=== PATIENT | male | born 1960 | race Two or more races ===

== ENCOUNTER 2024-02-29 17:40 | Inpatient (IN) | payer MEDICAID, OTHER ==
[~2024-02-29] VITALS: Ht 172.7 cm; Wt 88.5 kg
--- NOTE | 2024-02-29 18:15 | DVH ---
EXAM: XY CHEST PORTABLE TECHNIQUE: Single frontal chest radiograph CLINICAL HISTORY: CP COMPARISON: None Findings/Impression: Frontal chest radiograph demonstrates no acute osseous or superficial soft tissue abnormalities. The trachea is midline. The cardiac silhouette and mediastinum are within normal limits. No pneumothorax, pleural effusions, or consolidations.
[2024-02-29 19:16] LABS: Basophils # (auto) 0.1 10 ^3/uL (0-0.2); Basophils % (auto) 0.8 % (0.0-2.0); Eosinophils # (auto) 0.1 10 ^3/uL (0-0.8); Eosinophils % (auto) 0.7 % (0.0-7.0); Hematocrit 46.1 % (41.0-53.0); Hemoglobin 15.5 g/dL (13.5-17.5); Lymphocytes # (auto) 1.7 10 ^3/uL (0.4-5.4); Lymphocytes % (auto) 21.7 % (10.0-50.0); Mean Corpuscular Hemoglobin 29.6 pg (28.0-32.0); Mean Corpuscular Hgb Conc. 33.7 g/dL (32.0-36.0); Mean Corpuscular Volume 87.8 fL (80.0-100.0); Monocytes # (auto) 0.8 10 ^3/uL (0-1.3); Monocytes % (auto) 9.4 % (0.0-12.0); Neutrophils # (auto) 5.4 10 ^3/uL (1.6-8.6); Neutrophils % (auto) 67.4 % (37.0-80.0); Nucleated Red Blood Cells % 0.1 %; Platelet Count (auto) 310 10^3/uL (140-450); Red Blood Cells 5.25 10^6/uL (4.5-5.90); Red Cell Distribution Width 13.7 % (11.8-14.3)
--- NOTE | 2024-02-29 19:23 | ED.PDOC ---
HPI Comments 63y M who presents to the ED for chief complaint of chest pain. Pt states he has been having chest pain for the past 1 1/2 weeks. Pt states the pain is substernal, radiating to the arms, aching in nature, constant, with no associated exacerbating or relieving factors. Pt has associated shortness of breath with associated tingling to his bilateral arms but otherwise denies any other symptoms at this time. Pt [facility] to ED arrival and work up at clinic did not provide relief so he came to the ED for further evaluation. Pt otherwise denies any other symptoms at this time. Chief Complaint: Chest Pain Time Seen by MD: 19:15 Primary Care Provider: GOLD Sanon Notes: Medications Allergies: Coded Allergies: NO KNOWN ALLERGIES (Unverified , 02/29/24) Information Source: Patient, Relative Mode of Arrival: Ambulatory Brought in by: son Severity: Moderate Timing: Hours Duration: Since onset Prehospital treatment: None Location: Chest (R) Radiation: No Radiation Quality: Sharp, Pressure Onset: At Rest Cardiac Risk Factors: None PE Risk Factors: None History of: None Modifying Factors: Nothing Associated Signs and Symptoms: None Past Medical History PAST MEDICAL HISTORY: DM, High Lipids, HTN Surgical History: Appendectomy Family History Family History: Unknown Social History Smoker: Non-Smoker Alcohol: Denies ETOH Use Drugs: Denies Drug Use Lives In: Home Constitutional: denies: chills, diaphoresis, fatigue, fever, malaise, sweats, weakness, others EENTM: denies: blurred vision, double vision, ear bleeding, ear discharge, ear drainage, ear pain, ear ringing, eye pain, eye redness, hearing loss, mouth pain, mouth swelling, nasal discharge, nose bleeding, nose congestion, nose pain, photophobia, tearing, throat pain, throat swelling, voice changes, others Respiratory: denies: cough, hemoptysis, orthopnea, SOB at rest, shortness of breath, SOB with excertion, stridor, wheezing, others Cardiovascular: reports: chest pain; denies: dizzy spells, diaphoresis, Dyspnea on exertion, edema, irregular heart beat, left arm pain, lightheadedness, palpitations, PND, syncope, others Gastrointestinal: denies: abdomen distended, abdominal pain, blood streaked bowels, constipated, diarrhea, dysphagia, difficulty swallowing, hematemesis, melena, nausea, poor appetite, poor fluid intake, rectal bleeding, rectal pain, vomiting, others Genitourinary: denies: burning, dysuria, flank pain, frequency, hematuria, incontinence, penile discharge, penile sore, pain, testicle pain, testicle swelling, urgency, others Neurological: denies: dizziness, fainting, headache, left sided numbness, left sided weakness, numbness, paresthesia, pre-existing deficit, right sided numbness, right sided weakness, seizure, speech problems, tingling, tremors, weakness, others Musculoskeletal: denies: back pain, gout, joint pain, joint swelling, muscle pain, muscle stiffness, neck pain, others Integumetry: denies: bruises, change in color, change in hair/nails, dryness, laceration, lesions, lumps, rash, wounds, others Allergic/Immunocompromised: denies: Difficulty Healing, Frequent Infections, Hives, Itching, others Hematologic/Lymphatic: denies: anemia, blood clots, easy bleeding, easy bruising, swollen glands, others Endocrine: denies: excessive hunger, excessive sweating, excessive thirst, excessive urination, flushing, intolerance to cold, intolerance to heat, unexplained weight gain, unexplained weight loss, others Psychiatric: denies: anxiety, bipolar disorder, depression, hopeless, panic disorder, schizophrenia, sleepless, suicidal, others All Other Systems: Reviewed and Negative Physical Exam General Appearance: Moderate Distress HEENT: Normal ENT Inspection, Pharynx Normal, TMs Normal Neck: Full Range of Motion, Non-Tender, Normal, Normal Inspection Respiratory: Chest Non-Tender, Lungs Clear, No Accessory Muscle Use, No Respiratory Distress, Normal Breath Sounds Cardiovascular: No Edema, No JVD, No Murmur, No Gallop, Normal Peripheral Pulses, Regular Rate/Rhythm Breast Exam: Deferred Gastrointestinal: No Organomegaly, Non Tender, No Pulsatile Mass, Normal Bowel Sounds, Soft Genitalia: Deferred Pelvic: Deferred Rectal: Deferred Extremities: No calf tenderness, Normal capillary refill, Normal inspection, Normal range of motion, Non-tender, No pedal edema Musculoskeletal : Apperance: Normal Neurologic: Alert, respiratory therapy technician II-XII nml as Tested, No Motor Deficits, Normal Affect, Normal Mood, No Sensory Deficits Cerebellar Function: Normal Reflexes: Normal Skin: Dry, Normal Color, Warm Lymphatic: No Adenopathy EKG EKG : Pulse Rate (adult): 68 [place]: Normal Cardiac Rhythm: NSR Hypertrophy: None ST: Ischemia, Nonsp, Normal Was a procedure done? Was a procedure done?: No CP Differential Dx Differential Diagnosis: A-fib, A-Flutter, Angina, Anxiety / Panic Attack, Atrial Dysrhythmia, Electrolyte Disorder, PVC's, Sinus Tachycardia Differential Diagnosis: Chest Wall Pain X-Ray, Labs, Meds, VS Vital Signs Date Time Temp Pulse Resp B/P (MAP) Pulse Ox O2 Delivery O2 Flow Rate FiO2 02/29/24 19:23 68 02/29/24 18:51 68 02/29/24 17:49 64 02/29/24 17:45 97.8 72 18 143/80 (101) 96 Lab Test 02/29/24 18:44 Range/Units White Blood Count 8.0 4.4-10.8 10^3/uL Red Blood Count 5.25 4.5-5.90 10^6/uL Hemoglobin 15.5 13.5-17.5 g/dL Hematocrit 46.1 41.0-53.0 % Mean Corpuscular Volume 87.8 80.0-100.0 fL Mean Corpuscular Hemoglobin 29.6 28.0-32.0 pg Mean Corpuscular Hemoglobin Concent 33.7 32.0-36.0 g/dL Red Cell Distribution Width 13.7 11.8-14.3 % Platelet Count 310 140-450 10^3/uL Mean Platelet Volume 9.0 6.9-10.8 fL Neutrophils (%) (Auto) 67.4 37.0-80.0 % Lymphocytes (%) (Auto) 21.7 10.0-50.0 % Monocytes (%) (Auto) 9.4 0.0-12.0 % Eosinophils (%) (Auto) 0.7 0.0-7.0 % Basophils (%) (Auto) 0.8 0.0-2.0 % Neutrophils # (Auto) 5.4 1.6-8.6 10 ^3/uL Lymphocytes # (Auto) 1.7 0.4-5.4 10 ^3/uL Monocytes # (Auto) 0.8 0-1.3 10 ^3/uL Eosinophils # (Auto) 0.1 0-0.8 10 ^3/uL Basophils # (Auto) 0.1 0-0.2 10 ^3/uL Nucleated Red Blood Cells 0.1 % Sodium Level 143 136-145 mmol/L Potassium Level 4.4 3.5-5.1 mmol/L Chloride Level 106 98-107 mmol/L Carbon Dioxide Level 29 20-31 mmol/L Anion Gap 8 5-15 Blood Urea Nitrogen 12 9-23 mg/dL Creatinine 1.22 0.700-1.30 mg/dL Glomerular Filtration Rate Calc 67 >90 mL/min BUN/Creatinine Ratio 9.8 L 10.0-20.0 Serum Glucose 197 H 74-106 mg/dL Calcium Level 10.2 8.7-10.4 mg/dL Total Bilirubin 0.4 0.2-1.0 mg/dL Aspartate Amino Transferase (AST) 89 H 13-40 U/L Alanine Aminotransferase (ALT) 43 H 7-40 U/L Alkaline Phosphatase 137 H 46-116 U/L Troponin I High Sensitivity 81168 *H </=54 ng/L Total Protein 6.9 5.7-8.2 g/dL Albumin 4.4 3.2-4.8 g/dL EXAM: XY CHEST PORTABLE Findings/Impression: Frontal chest radiograph demonstrates no acute osseous or superficial soft tissue abnormalities. The trachea is midline. The cardiac silhouette and mediastinum are within normal limits. No pneumothorax, pleural effusions, or consolidations. IV Hep-Lock has been established The patient was given aspirin here in the emergency department[place] [address] The CBC and chemistry panel came back within normal range We are starting STEMI protocol The patient had a nitroglycerin placed as 1/2 inch on the chest The patient was also given heparin 4000 units IV push The patient was also being started on an insulin drip A cardiology consult is being obtained. The patient was being admitted We have discussed the findings with the patient and his son who is his fiber designer. Critical Care involved bedside evaluation as well as interpretation of labs and speaking with the technical marketing consultant. The patient was being admitted Images Reviewed?: Images reviewed and evaluated by me Time of 1ST Reevaluation: 19:45 Reevaluation 1ST: Unchanged Patient Education/Counseling: Diagnosis, Treatment, Prognosis Family Education/Counseling: Diagnosis, Treatment, Prognosis Additional Information I reviewed the following notes from patient's past medical encounters: The following tests were ordered, and results were reviewed by me: ASA, COVID test, EKG x 3, troponin x3, UA, CBC, CMP, chest x-ray Additional Information was gathered from interviewing the following independent historians: pt family I reviewed and agreed with the following test results read by other providers: radiologist I discussed treatment and results with medical personnel and: patient and family Departure 1 Departure Time of Disposition: 19:49 Impression: Primary Impression: Non-STEMI (non-ST elevated myocardial infarction) Disposition: ADMITTED INPATIENT Admit to: [facility] Condition: Guarded Critical Care Note Critical Care Time?: Yes (55 min-critical care time only) Stability Stability form required: Yes Unstable for transfer: ICU, CCU, PCU, [facility] (Intensive VS monitoring), ED Physician Assesment (Clinical assesment) Heart Score Heart Score: Heart Score Response (Comments) Value History Highly Suspicious 2 EKG Repolarization Disturb 1 Age 45-64 1 Risk Factors >3 or Hx ASHD 2 Troponin >3 x's Normal limit 2 Total 8 I personally scribed for INA DIXON ([email or web address]) on 02/29/24 at 19:23. Electronically submitted by Ca Hicks ([email or web address]). INA DIXON Feb 29, 2024 19:23 ALEJANDRA MERCHANT MD Feb 29, 2024 19:51
[2024-02-29 19:39] LABS: Albumin 4.4 g/dL (3.2-4.8); Anion Gap 8 (5-15); BUN/Creatinine Ratio 9.8 (10.0-20.0); Blood Urea Nitrogen 12 mg/dL (9-23); Calcium 10.2 mg/dL (8.7-10.4); Carbon Dioxide 29 mmol/L (20-31); Chloride 106 mmol/L (98-107); Potassium 4.4 mmol/L (3.5-5.1); Sodium 143 mmol/L (136-145)
[2024-02-29 19:40] LABS: Bilirubin, Total 0.4 mg/dL (0.2-1.0); Total Protein 6.9 g/dL (5.7-8.2)
[2024-02-29 19:42] LABS: Alanine Aminotransferase 43 U/L (7-40); Alkaline Phosphatase 137 U/L (46-116); Aspartate Aminotransferase 89 U/L (13-40); Glucose 197 mg/dL (74-106)
[2024-02-29 20:00] VITALS: PULSE 64; RESP 17; O2SAT 94
[2024-02-29] MEDS ORDERED: hydrALAZINE HCL 20 MG/ML VL IV PRN (20:15)
[2024-02-29] MEDS ORDERED: DEXTROSE (50%) 50ML SYRG IV PRN (20:30)
[2024-02-29] MEDS ORDERED: MORPHINE SULFATE INJ 2 MG/ml SYRG IV PRN (20:30)
[2024-02-29] MEDS ORDERED: ONDANSETRON HCL 4 MG/2 ML VIAL IV PRN (20:30)
[2024-02-29] MEDS ORDERED: NITROGLYCERIN 0.4 MG SL TAB SL PRN (20:30)
[2024-02-29 20:35] LABS: Urine Bacteria None Seen /hpf (None Seen); Urine WBC None Seen /hpf (0 - 3)
[2024-02-29] MEDS: NITROGLYCERIN 2% OINT 1GM PKG TD ONE (20:38)
[2024-02-29] MEDS: ASPirin 81 mg TAB PO ONE (20:39)
[2024-02-29] MEDS: HEPARIN SODIUM (PORCINE) 5000 UNITS/ML 1ML VIAL IV ONE (20:41)
[2024-02-29 21:04] LABS: Urine Blood Negative /uL (Negative); Urine Clarity Clear (Clear); Urine Color Light-Yellow (Yellow); Urine Protein, UAD Negative (Negative); Urine Specific Gravity 1.014 (1.001-1.035); Urine Squamous Epithelial Cell None Seen /hpf (<5); Urine Urobilinogen Normal (Negative); Urine pH 5.5 (5.0-9.0)
[2024-02-29] MEDS: ATORVASTATIN 20 MG TAB PO ONE (21:44)
[2024-02-29] MEDS: HEPARIN DRIP/D5W 100UNITS/ML 250 ML IV SCH (21:52)
--- NOTE | 2024-02-29 21:56 | DVHHP2 ---
History of Present Illness Reason for Visit: Chest pain History of Present Illness 63-year-old male presents for evaluation of chest pain. Patient with a medical history of hypertension, dyslipidemia and diabetes mellitus presents with a to history of substernal burning like sensation that radiates to his neck bilateral arms causing numbness. Also reports mild shortness for breath. He states his symptoms became more constant today so he presented for further evaluation. Denies cough or fever. Denies any other acute complaints at the moment. Past Medical History Hypertension, dyslipidemia and diabetes mellitus Past Surgical History Appendectomy Family History Denies Smoke: No ALCOHOL: none Drugs: None Lives: with Family Review of Systems Review of Systems Review of systems are currently negative otherwise addressed in HPI. Allergies: Coded Allergies: NO KNOWN ALLERGIES (Unverified , 02/29/24) Medications Current Medications Medications Dose Ordered Sig/Devan Route Start Time Stop Time Status Last Admin Dose Admin Heparin Sodium/ Dextrose 250 ml @ 10 mls/hr Q24H IV 02/29/24 20:00 Hydralazine HCl 10 mg Q6HP PRN IV 02/29/24 20:15 Aspirin 162 mg DAILY PO 03/01/24 10:00 Atorvastatin Calcium 20 mg HS PO 03/01/24 22:00 Diagnostic Test (Pha) 1 strip Q6HR 03/01/24 00:00 Insulin Human Regular Q6HR SC 03/01/24 00:00 Dextrose 50 ml UD PRN IV 02/29/24 20:30 Ondansetron HCl 4 mg Q4HP PRN IV 02/29/24 20:30 Nitroglycerin 0.4 mg Q5MINP PRN SL 02/29/24 20:30 Morphine Sulfate 2 mg Q30M PRN IV 02/29/24 20:30 Exam Vital Signs Vital Signs Date Time Temp Pulse Resp B/P (MAP) Pulse Ox O2 Delivery O2 Flow Rate FiO2 02/29/24 20:38 132/71 02/29/24 20:06 64 17 94 02/29/24 17:45 97.8 Exam Gen: 63-year-old male in mild distress Skin: Warm, dry, normal color and texture, no rash. HEENT: Normocephalic atraumatic, mucous membranes moist and pink. Neck: Cervical and supraclavicular nodes normal without enlargement, trachea is midline, thyroid gland is normal without masses. Pulmonary: Clear to auscultation and percussion bilaterally. Cardiac: Regular rate and rhythm. No murmur Abdomen: Soft, nontender, nondistended, bowel sounds present all 4 quadrants, no guarding, no rigidity, no organomegaly. Extremities: No cyanosis, clubbing, no edema Neuro: Cranial nerves II through XII grossly intact, normal affect and speech, no focal motor deficits. Labs/Xrays ORDERING PHYSICIAN: ALEJANDRA MERCHANT MD PROCEDURE(s): CXRP - CHEST PORTABLE REASON: CP ORDER NUMBER(s): [id number], ACCESSION NUMBER(s): [id number] EXAM: XY CHEST PORTABLE TECHNIQUE: Single frontal chest radiograph CLINICAL HISTORY: CP COMPARISON: None Findings/Impression: Frontal chest radiograph demonstrates no acute osseous or superficial soft tissue abnormalities. The trachea is midline. The cardiac silhouette and mediastinum are within normal limits. No pneumothorax, pleural effusions, or consolidations. Labs Test 02/29/24 21:38 02/29/24 19:56 02/29/24 18:44 02/29/24 17:49 Range/Units Troponin I High Sensitivity 14415 *H </=54 ng/L White Blood Count 8.0 4.4-10.8 10^3/uL Red Blood Count 5.25 4.5-5.90 10^6/uL Hemoglobin 15.5 13.5-17.5 g/dL Hematocrit 46.1 41.0-53.0 % Mean Corpuscular Volume 87.8 80.0-100.0 fL Mean Corpuscular Hemoglobin 29.6 28.0-32.0 pg Mean Corpuscular Hemoglobin Concent 33.7 32.0-36.0 g/dL Red Cell Distribution Width 13.7 11.8-14.3 % Platelet Count 310 140-450 10^3/uL Mean Platelet Volume 9.0 6.9-10.8 fL Neutrophils (%) (Auto) 67.4 37.0-80.0 % Lymphocytes (%) (Auto) 21.7 10.0-50.0 % Monocytes (%) (Auto) 9.4 0.0-12.0 % Eosinophils (%) (Auto) 0.7 0.0-7.0 % Basophils (%) (Auto) 0.8 0.0-2.0 % Neutrophils # (Auto) 5.4 1.6-8.6 10 ^3/uL Lymphocytes # (Auto) 1.7 0.4-5.4 10 ^3/uL Monocytes # (Auto) 0.8 0-1.3 10 ^3/uL Eosinophils # (Auto) 0.1 0-0.8 10 ^3/uL Basophils # (Auto) 0.1 0-0.2 10 ^3/uL Nucleated Red Blood Cells 0.1 % Sodium Level 143 136-145 mmol/L Potassium Level 4.4 3.5-5.1 mmol/L Chloride Level 106 98-107 mmol/L Carbon Dioxide Level 29 20-31 mmol/L Anion Gap 8 5-15 Blood Urea Nitrogen 12 9-23 mg/dL Creatinine 1.22 0.700-1.30 mg/dL Glomerular Filtration Rate Calc 67 >90 mL/min BUN/Creatinine Ratio 9.8 L 10.0-20.0 Serum Glucose 197 H 74-106 mg/dL Calcium Level 10.2 8.7-10.4 mg/dL Total Bilirubin 0.4 0.2-1.0 mg/dL Aspartate Amino Transferase (AST) 89 H 13-40 U/L Alanine Aminotransferase (ALT) 43 H 7-40 U/L Alkaline Phosphatase 137 H 46-116 U/L Total Protein 6.9 5.7-8.2 g/dL Albumin 4.4 3.2-4.8 g/dL Urine Color Light-yellow Yellow Urine Clarity Clear Clear Urine pH 5.5 5.0-9.0 Urine Specific [place] 1.014 1.001-1.035 Urine Protein Negative Negative Urine Ketones Negative Negative Urine Blood Negative Negative /uL Urine Nitrite Negative Negative Urine Bilirubin Negative Negative Urine Urobilinogen Normal Negative mg/dL Urine Leukocyte Esterase Negative Negative /uL Urine RBC <1 0 - 3 /hpf Urine WBC None seen 0 - 3 /hpf Urine Squamous Epithelial Cells None seen <5 /hpf Urine Bacteria None seen None Seen /hpf Urine Glucose 2+ H Normal mg/dL Assessment/Plan Assessment/Plan Assessment NSTEMI Diabetes mellitus Hypertension Plan Admit the patient to [facility] to the hospitalist Cardiology consultation, Dr. Pérez who generally the morning of the case will consult on the patient tomorrow. NPO Continue heparin drip ACS protocol Continue treatment per orders Total critical care time excluding procedures performed is 50 minutes. Plan discussed with: Patient My Orders Orders - ZE STARR Procedure Category Date Status Time Hydralazine Injection PHA 02/29/24 In Process (Apresoline Inject 20:15 * Cardiology Consult CONS 02/29/24 Transmitted 20:11 PTPTT LAB 02/29/24 In Process 20:11 Aspirin Tablet PHA 03/01/24 In Process 10:00 Glucose Blood PHA 03/01/24 In Process (Accu-Chek Comfort 00:00 Insulin R (Human) PHA 03/01/24 In Process (Insulin R) 00:00 Dextrose 50% Syringe PHA 02/29/24 In Process 20:30 Admit ADMIT 02/29/24 Transmitted 20:20 Ondansetron Hcl PHA 02/29/24 In Process (Zofran) 20:30 Complete Blood Count LAB 03/01/24 Verified 04:00 Comprehensive LAB 03/01/24 Verified Metabolic Panel 04:00 Npo (Nothing By DIET 03/01/24 Transmitted Mouth) Diet Breakfast Echo 2d Mode Cardiac US 02/29/24 Logged DOP 20:20 Condition: Critical JOHANA 02/29/24 In Process 20:20 Bedrest With Bathroom JOHANA 02/29/24 In Process Privileg 20:20 Nitroglycerin PHA 02/29/24 In Process Sublingual (Ntrostat 20:30 Morphine Sulfate PHA 02/29/24 In Process Injection 20:30 Notify Of Changes JOHANA 02/29/24 In Process From Base 20:20 Business System Manager For [facility] 02/29/24 In Process 24 Hours 20:20 Emergency Dysrhythmia [facility] 02/29/24 In Process Protocol 20:20 Rhythm Strips Once [facility] 02/29/24 In Process Every Shift 20:20 Oxygen By Nasal RT 02/29/24 Transmitted Cannula 20:20 Atorvastatin (Lipitor) PHA 03/01/24 In Process 22:00 Date of Service: Feb 29, 2024 Billing Provider: ZE STARR Common Visit Codes: [id number] CARE 30-74 MIN ZE STARR Feb 29, 2024 21:56
[2024-02-29 22:10] LABS: INR 1.03 (0.9-1.15); Prothrombin Time 10.9 sec (9.3-11.8)
[2024-02-29 22:11] LABS: Partial Thromboplastin Time 89.2 SEC (24.5-34.5)
[2024-02-29 23:18] LABS: INR 1.01 (0.9-1.15); Partial Thromboplastin Time 51.7 SEC (24.5-34.5); Prothrombin Time 10.7 sec (9.3-11.8)
[2024-03-01] VITALS (12 sets, daily range): BP systolic 96–124; BP diastolic 55–78; PULSE 65–87; RESP 12–19; TEMP 97.4–98.6; O2SAT 93–97
[2024-03-01] MEDS: ACCU-CHEK COMFORT CURVE STRIP VI SCH (00:44)
[2024-03-01] MEDS: InsuLIN REG 1unit/0.01ml Soln (100units/ml) SC SCH (01:22)
[2024-03-01 04:32] LABS: Basophils # (auto) 0.1 10 ^3/uL (0-0.2); Basophils % (auto) 0.6 % (0.0-2.0); Eosinophils # (auto) 0 10 ^3/uL (0-0.8); Eosinophils % (auto) 0.1 % (0.0-7.0); Hemoglobin 14.5 g/dL (13.5-17.5); Lymphocytes # (auto) 1.4 10 ^3/uL (0.4-5.4); Lymphocytes % (auto) 13.8 % (10.0-50.0); Mean Corpuscular Hemoglobin 29.5 pg (28.0-32.0); Mean Corpuscular Hgb Conc. 33.7 g/dL (32.0-36.0); Mean Corpuscular Volume 87.7 fL (80.0-100.0); Monocytes # (auto) 0.9 10 ^3/uL (0-1.3); Monocytes % (auto) 8.3 % (0.0-12.0); Neutrophils % (auto) 77.2 % (37.0-80.0); Platelet Count (auto) 273 10^3/uL (140-450); Red Cell Distribution Width 13.8 % (11.8-14.3); White Blood Cell 10.4 10^3/uL (4.4-10.8)
[2024-03-01 04:44] LABS: INR 1.01 (0.9-1.15); Prothrombin Time 10.7 sec (9.3-11.8)
[2024-03-01 04:50] LABS: Alanine Aminotransferase 39 U/L (7-40); Anion Gap 7 (5-15); BUN/Creatinine Ratio 8.3 (10.0-20.0); Bilirubin, Total 0.6 mg/dL (0.2-1.0); Calcium 9.4 mg/dL (8.7-10.4); Carbon Dioxide 26 mmol/L (20-31); Chloride 107 mmol/L (98-107); Potassium 3.9 mmol/L (3.5-5.1); Sodium 140 mmol/L (136-145); Total Protein 6.5 g/dL (5.7-8.2)
[2024-03-01 04:52] LABS: Alkaline Phosphatase 123 U/L (46-116); Aspartate Aminotransferase 116 U/L (13-40); Blood Urea Nitrogen 9 mg/dL (9-23); Glucose 192 mg/dL (74-106)
[2024-03-01] MEDS: HEPARIN DRIP/D5W 100UNITS/ML 250 ML IV SCH ×2 (04:57→19:00)
--- NOTE | 2024-03-01 07:51 | ECG ---
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
[2024-03-01 08:13] LABS: COVID19 ANTIGEN SOFIA FIA NEGATIVE (NEGATIVE)
--- NOTE | 2024-03-01 08:17 | ECG ---
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
[2024-03-01 08:22] LABS: Triglycerides 91 mg/dL (< 150)
[2024-03-01 08:23] LABS: LDL Cholesterol 96 mg/dL (< 100)
[2024-03-01 08:24] LABS: Cholesterol 149 mg/dL (< 200); HDL Cholesterol 43 mg/dL (40-59)
[2024-03-01] MEDS: ASPirin 81 mg TAB PO SCH ×2 (10:22→18:03)
[2024-03-01] MEDS: ATORVASTATIN 20 MG TAB PO ONE (10:23)
[2024-03-01 11:44] LABS: INR 1.04 (0.9-1.15); Partial Thromboplastin Time 50.7 SEC (24.5-34.5)
--- NOTE | 2024-03-01 12:46 | DVHPNRES ---
Progress Note Date Seen: Mar 01, 2024 Resident Creating Document: JOYCELYN OCASIO RESIDENT Medical Necessity Reason Pt with a Central, PICC or Fol: No Subjective Review of Systems Patient is a 63-year-old male with past medical history of hypertension, dyslipidemia, type 2 diabetes of, who came in due to chest pain. Patient notes for the last 1.5 weeks he has been having chest pain along with bilateral arm pain which is more pronounced in the left upper extremity than the right. Patient notes that previously he has experienced chest pain more so on exertion, however, that was intermittent in nature where as this current episode of chest pain is more persistent and had been ongoing for 4-5 hours on 02/29/24 which prompted this visit to the hospital. Patient describes the pain as heaviness in his chest along with difficulty breathing. Patient notes that he is able to engage in physical activity for 20 minutes before he starts experiencing chest pain/tightness. Patient notes he also attended another clinic before coming to the [facility] where he was told he needs to visit the hospital. [place] [address], [address] [place] [address]. Patient completed left heart catheterization which showed diffuse three-vessel disease including subtotal right and subtotal left circumflex artery with a moderately severe disease involving the proximal mid left anterior descending artery in the distal left main, given the diffuse nature of the disease patient is recommended to get a coronary artery bypass graft surgery as the best option for revascularization. Request to transfer to higher level of care initiated Past surgical history: Appendectomy Home medications: Atorvastatin, lisinopril, amlodipine, aspirin, oral antidiabetic medication patient unsure of name. Social & Personal history: Patient lives with family in [place]. Quit smoking cigarettes 30 years ago. Sometimes uses alcohol. Denies using drugs. Allergies: Denies Patient seen and examined at bedside. Patient is alert and oriented to time, place person and responding to all questions. General: Reports fatigue Eyes: No Pain, No Vision change, No Conjunctivae inflammation, No Eyelid inflammation, No Other, No Redness ENT: No Ear pain, No Ear discharge, No Nose pain, No Nose discharge, No Nose congestion, No Mouth pain, No Mouth swelling, No Throat pain, No Throat swelling, No Other Cardiovascular: No Chest Pain, No Palpitations, No Orthopnea, Dyspnea, No Edema, No Lt Headedness, No Other Respiratory: No Cough, No Dry, Shortness of breath, SOB with exertion, No Wheezing, No Hemoptysis, No Pleuritic Pain, No Sputum, No Other Gastrointestinal: No Nausea, No Vomiting, No Abdominal Pain, No Diarrhea, No Constipation, No Melena, No Hematochezia, No Other Genitourinary: No Dysuria, No Frequency, No Incontinence, No Hematuria, No Retention, No Other Musculoskeletal: No other, No neck pain, No shoulder pain, No arm pain, No back pain, No hand pain, No leg pain, No foot pain Skin: No Rash, No Lesions, No Jaundice, No Bruising, No Other Objective vital signs Vital Sign Date Time Temp Pulse Resp B/P (MAP) Pulse Ox O2 Delivery O2 Flow Rate FiO2 03/01/24 11:00 67 18 106/65 (79) 95 03/01/24 07:30 Room Air* 0 21 03/01/24 07:30 99.4 99.4 Total Intake and Output 02/29/24 02/29/24 03/01/24 15:00 23:00 07:00 Intake Total 20 ml 50 ml Balance 20 ml 50 ml medications Current Medications Medications Dose Ordered Sig/Devan Route Start Time Stop Time Status Last Admin Dose Admin Hydralazine HCl 10 mg Q6HP PRN IV 02/29/24 20:15 Aspirin 162 mg DAILY PO 03/01/24 10:00 03/01/24 10:22 162 MG Diagnostic Test (Pha) 1 strip Q6HR 03/01/24 00:00 03/01/24 06:08 1 STRIP Insulin Human Regular Q6HR SC 03/01/24 00:00 03/01/24 06:17 4 UNITS Dextrose 50 ml UD PRN IV 02/29/24 20:30 Ondansetron HCl 4 mg Q4HP PRN IV 02/29/24 20:30 Nitroglycerin 0.4 mg Q5MINP PRN SL 02/29/24 20:30 Morphine Sulfate 2 mg Q30M PRN IV 02/29/24 20:30 Heparin Sodium/ Dextrose 250 ml @ 12 mls/hr [id number] IV 03/01/24 05:00 03/01/24 04:57 12 MLS/HR Atorvastatin Calcium 80 mg HS PO 03/02/24 22:00 Examination General Appearance: Cooperative. Well developed. Well nourished. NAD Head Exam: Normal inspection Neck Exam: Normal inspection. Non-tender. Normal alignment Pulmonary/Respiratory: Chest non-tender. Clear bilateral breath sounds, no crackles, wheezing. Cardiovascular/Chest: Regular rate and rhythm. No murmurs. No JVD. Peripheral Pulses: 2+ Radial (R). 2+ Radial (L). 2+ Pedal (R). 2+ Pedal (L) Abdominal Exam: Normal bowel sounds. Soft. normal abdomen, no visible veins, Nontender. No hepatospenomegaly. No masses Ankle Exam: Negative ankle edema Lower extremities: Negative lower extremity edema Neuro/Mental Status: A&O x4. Coherent. Thoughts/Psych: Normal thought pattern. Appropriate mood and affect. Good judgement and insight Skin Exam: Normal inspection. Normal color. Warm. Dry laboratory and microbiology Laboratory Tests 03/01/24 04:03 Test 03/01/24 04:03 Range/Units Serum Glucose 192 H 74-106 mg/dL Labs and/or images reviewed: Labs reviewed by me, Image(s) reviewed by me Problem List/Assessment/Plan Problem List/Assessment/Plan Chest pain due to NSTEMI - CXR: No acute osseous or superficial soft tissue abnormalities - serial troponins 58716, 28528, 06816 - started on heparin drip, aspirin 162 mg, atorvastatin 80 mg - Patient completed left heart catheterization which showed diffuse three-vessel disease including subtotal right and subtotal left circumflex artery with a moderately severe disease involving the proximal mid left anterior descending artery in the distal left main, given the diffuse nature of the disease patient is recommended to get a coronary artery bypass graft surgery as the best option for revascularization. Request to transfer to higher level of care initiated Type 2 diabetes, uncontrolled, Hb A1c 9 - mild sliding scale insulin Hypertension Dyslipidemia - nitroglycerin drip once - IV hydralazine 10 mg as needed for SBP greater than 150 DVT prophylaxis: On heparin drip Goals of care: Full code, discussed for >16 minutes on 03/01/24 Plan discussed with patient Plan discussed with Dr. Avila Plan discussed with: Patient, Spouse, Other (RN) My Orders My Orders Orders - JOYCELYN OCASIO Procedure Category Date Status Time Atorvastatin (Lipitor) PHA 03/02/24 In Process 22:00 Date of Service: Mar 01, 2024 Billing Provider: MARLO AVILA MD Common Visit Codes: [id number] CARE 30-74 MIN Coding Comment Comment attending attestation ACS NSTEMI severe tri vessel CAD chornic diastolic heart failure HFpEF HTN IDDM s/p LHC asa heparin lipitor no plavix ss consult for HLOC CABG basal bolus insulin diurese euvolemia JOYCELYN OCASIO Mar 01, 2024 12:46 MARLO AVILA MD Mar 01, 2024 18:31
[2024-03-01] MEDS: HEPARIN IN NS 1000Units/500mL 1,500 ML ONE (14:01)
[2024-03-01] MEDS: IODIXANOL 320MG/ML 100ML BTL IV ONE (14:01)
--- NOTE | 2024-03-01 14:07 | DVHSR ---
APPROVED REPORT EXAM: LIMITED Two-dimensional and M-mode echocardiogram with Doppler and color Doppler. Blood Pressure: 98/53 mmHg INDICATION Chest Pain RISK FACTORS Obesity: Height: 5'8, Weight: 187 DIMENSIONS LVDd3.8 (3.8-5.7cm)LA (2D)3.4 (1.9-4.0cm)Aortic Root3.3 (2.0-3.7cm) LVDs2.8 (2.5-4.0cm)LA (MM) (1.9-4.0cm)Aortic Cusp Exc1.6 (1.5-2.0cm) EF (%) 50.0 (55-70%)Rt. Atrium (1.9-4.0cm)Asc. Aorta2.8 cm IVSd1.1 (0.7-1.1cm)RV (D) (1.8-2.4cm) PWd1.1 (0.7-1.1cm) Mitral Valve MitralMitral Stenosis E wave0.53m/sMV Mean GR.mmHg A wave0.77m/sMV Peak GR.95mmHg E/A ratio0.72D MVAcm2 DECEL [id number] 1/2 Timems Aortic Valve Aortic ValveAortic Stenosis V10.93m/Kourtney Mean GR.4mmHg V21.33m/Kourtney Peak GR.7mmHg LVOT Diameter2.1 (1.8-2.4cm)Doppler AVA2.42cm2 Pulmonic Valve V21.27m/s Tricuspid Valve TR Velocity2.19m/s [id number] Conclusion Normal left ventricular size and dimension. Normal left ventricular systolic function estimated ejec tion fraction 55%. There is a grade 1 diastolic dysfunction. Normal right ventricular size and dimension. Normal left ventricular systolic function. Normal right and left atrial size and dimension. The aortic valve is thickened and sclerotic. There is mild mitral valve regurgitation. There is mild tricuspid valve regurgitation. The pulmonary valve is grossly normal. No pericardial effusion.
[2024-03-01] MEDS: SODIUM CHL 0.9% 0 ML ONE (14:33)
[2024-03-01] MEDS: ANGIOMAX 250 MG VIAL IV ONE (14:33)
[2024-03-01] MEDS: fentaNYL CITRATE 100 MCG/2 ML VL ONE (14:33)
[2024-03-01] MEDS: MIDAZOLAM HCL 2MG/2ML 2ml VIAL (1mg/ml) ONE (14:33)
[2024-03-01] MEDS: VERAPAMIL 2.5MG/ML INJ 2ML VIAL IV ONE (14:33)
[2024-03-01] MEDS: LIDOCAINE 2%HCL (LOCAL ANESTH.) INJ 20ML MDV ONE (14:34)
--- NOTE | 2024-03-01 15:13 | DVHOP2 ---
Operative Report -Cardiology Report Details Date: 03/01/24 Preop Diagnosis: Non ST-elevation myocardial infarction. Postop Diagnosis: Coronary angiography performed via right transradial approach revealing diffuse three-vessel disease involving left main, prox LAD, mid LAD, subtotal left circumflex system, subtotal right coronary system with collateral from the left system. Given the diffuse nature of the disease patient will be better served with open heart surgery as an option for revascularization. Surgeon: Lindsay Barahona MD Chief Airport Guide: Scott Demarco MD Anesthesiologist: Conscious sedation using 25 mcg of fentanyl as well as a mg IV midazolam. Patient was given sedative under the direct supervision of the primary welt rougher myself in the presence of the attending nurses. He was monitored for total of 35 minutes without obvious complication. Anesthesia: Local Consent: The patient was informed of the risks and benefits of the procedure. These include but are not limited to complications of anesthesia, postoperative infection, incomplete relief of symptoms, recurrence of symptoms, damage to blood vessels, nerves and tendons, deep venous thrombosis, pulmonary embolism an d possible need for repeat surgery in the future. Indications for Surgery: 63y M who presents to the ED for chief complaint of chest pain. Pt states he has been having chest pain for the past 1 1/2 weeks. Pt states the pain is subster nal, radiating to the arms, aching in nature, constant, with no associated exacerbating or relieving factors. Pt has associated shortness of breath with associated tingling to his bilateral arms but otherwise denies any other symptoms at this time. Pt states he was seen at clinic [facility] prior to ED arrival and work up at clinic did not provide relief so he came to the ED for f urther evaluation. Pt otherwise denies any other symptoms at this time. Name of Procedure Performed 1. Left heart catheterization with left ventricular end-diastolic pressure measurement. 2. Selective right and left coronary angiography utilizing right transradial approach. 3. Conscious sedation using 25 mcg of fentanyl as well as a mg of midazolam. Procedure Details Procedure Details: Procedure note and vascular access: After informed consent was obtained, risks, benefits, complications, and alternatives were discussed in details with the patient who agrees to have the procedure done. At the beginning of the procedure, the right wrist and the right groin area were prepped and draped in the regular sterile fashion. Patient received conscious sedation 25 mcg of fentanyl as well as a mg of midazolam. Thereafter, total of 2 cc of 1% xylocaine was given to the right wrist area before a six [place] sheath was placed using modified Seldinger technique without difficulty. A cocktail of 2.5 mg of verapamil as well as 100 mcg of nitroglycerin were given intra-arterial to prevent vasospasm. [place] five [place] catheter as well as a busy J-tip wire were used to cross the aorta to the left coronary ostium findings were as follows: 1. Left heart catheterization with left ventricular end-diastolic pressure measurement: With the help of a tiger five [place] catheter as well as a J-tip wire we were able to cross the aortic valve, and measured left ventricular end-diastolic pressure which was low at 1 mm of mercury. There was no gradient across the aortic valve on the pullback. 2. Selective right and left coronary angiography utilizing right transradial approach: 1. Left main comes off the left coronary cusp, it is diffusely disease at 40- 50%, it bifurcates distally into a large left anterior descending artery as well as a medium-sized left circumflex vessel. 2. The left anterior descending artery has proximal disease at 60-70%, as mid disease and about 80%, but the overall left anterior descending artery distal part is the of major stenosis. It gives rise to small caliber 1st diagonal branch with the ostial 99% stenosis. 3. The left circumflex system is medium-sized caliber vessel it is subtotally occluded, it reconstitute distally with three different obtuse marginal branches it is collateral from the left anterior descending artery distal part. 4. The right coronary artery is a large vessel, it is dominant it bifurcates distally into a large posterior descending artery as well as a large posterolateral branch, right coronary artery has tandem lesion at 90% following the proximal and mid segment respectively, there is a subtotal ostial posterior descending artery stenosis. There is mid posterolateral 75-80% candy wrapper lesion as well, the distal part of the right coronary artery including the posterior descending artery as well as the posterolateral branch attention collateral from the left system and they are good targets for revascularization. Impression and plan: 1. Diffuse three-vessel disease as outlined above including subtotal right and subtotal left circumflex artery with a moderately severe disease involving the proximal and mid left anterior descending artery and the distal left main, 2. Given the diffuse nature of the disease with the patient has a would recom mend coronary artery bypass graft surgery as a best option for revascularization. 3. Patient would need to be placed on IV heparin as well as to continue baby aspirin without Plavix, and to be transradial high-level care for surgical revascularization could be obtained. 4. Patient would need an echocardiogram to assess left ventricular ejection fraction and to rule out underlying valvular heart disease before starting goal- directed therapy as indicated. In the meantime patient will receive high-dose statin to achieve LDL target less than 50 mg/dL in addition to aggressive secondary prevention protocol. Condition Good [facility] Clinical Frailty Scale [facility] Clinical Frailty Scale: Managing Well Dominance Dominance: Right Disposition LINDSAY BARAHONA MD Mar 01, 2024 15:13
--- NOTE | 2024-03-01 16:38 | DVHCONRES ---
Date Seen: Mar 01, 2024 Resident Creating Document: ELIESER MORALES RESIDENT Referring Physician Dr. Miramontes History of Present Illness This is a 63-year-old male with a past medical history of diabetes and hypertension presented to the ED with chest pain has been ongoing for the past week and a half. According to the patient, the pain started in his upper abdominal region traveling all the way up the chest to the jaw then spreading to the chest all over and to the upper extremities more so on the left compared to the right making the left arm feel numb. Pain was intermittent and usually associated with exertion and relieved with rest. However,over the days, the frequency and the duration of the pain had increased. Yesterday, 02/29/2024, [facility] and was told everything is okay and the patient returned home. While home, patient continued to have chest pain this time for 5 hours without any relief. Thus prompting the patient to come to the ED. Initial vitals in the ED was normal except for blood pressure measured at 140/80. [place] [address] and up trending. Hemoglobin A1c was 9 and 12 lead EKG revealed the presence of Q-waves and inverted T-waves in the inferior leads. Past Medical History Hypertension, diabetes mellitus type 2 Past Surgical History Appendectomy Family History Mother of a heart attack at age of 80 Social History Does not drink does not smoke lives with and family at home Allergies: Coded Allergies: NO KNOWN ALLERGIES (Unverified , 02/29/24) Current Medications Current Medications Medications (Trade) Dose Ordered Sig/Devan Route PRN Reason Start Time Stop Time Status Last Admin Heparin Sodium/ Dextrose 250 ml @ 10 mls/hr Q24H IV 02/29/24 20:00 03/01/24 04:56 DC 02/29/24 21:52 Hydralazine HCl (Apresoline Injection) 10 mg Q6HP PRN IV SBP>150 02/29/24 20:15 03/01/24 12:44 DC Aspirin 162 mg DAILY PO 03/01/24 10:00 03/01/24 10:22 Atorvastatin Calcium (Lipitor) 20 mg HS PO 03/01/24 22:00 03/01/24 08:25 DC Diagnostic Test (Pha) (Accu-Chek Comfort Curve T) 1 strip Q6HR 03/01/24 00:00 03/01/24 13:05 Insulin Human Regular (InsuLIN R) Q6HR SC 03/01/24 00:00 03/01/24 13:04 Dextrose 50 ml UD PRN IV Blood Sugar LESS THAN 60 02/29/24 20:30 Ondansetron HCl (Zofran) 4 mg Q4HP PRN IV NAUSEA / VOMITING 02/29/24 20:30 Nitroglycerin (Ntrostat Sublingual) 0.4 mg Q5MINP PRN SL FOR CHEST PAIN 02/29/24 20:30 Morphine Sulfate 2 mg Q30M PRN IV FOR CHEST PAIN 02/29/24 20:30 Heparin Sodium/ Dextrose 250 ml @ 12 mls/hr [id number] IV 03/01/24 05:00 03/01/24 04:57 Atorvastatin Calcium (Lipitor) 80 mg HS PO 03/02/24 22:00 Vital Signs Vital Signs Date Time Temp Pulse Resp B/P (MAP) Pulse Ox O2 Delivery O2 Flow Rate FiO2 03/01/24 15:35 66 14 104/67 (79) 94 03/01/24 15:05 97.4 97.4 03/01/24 07:30 Room Air* 0 21 Physical Exam General examination- Not in acute distress HEENT: PEERLA, no acute nasal discharge Chest: Mild substernal chest pain in the precordium; S1-S2 audible, rate and rhythm regular, no murmur Lung: CTAB, no wheeze or rhonchi Abdomen: Mildly distend, BS+, nontenderness, no organomegaly Musculoskeletal: no acute joint swelling or tenderness Lower extremity: no leg edema Neurological: cranial nerves intact, no acute dysarthria or dysphagia Psychiatry-- Normal mood and affect Skin- no acute rash or purpura Labs/Diagnostic Data Labs Test 03/01/24 12:10 03/01/24 11:00 03/01/24 04:03 03/01/24 03:17 Range/Units POC Glucose 134 H 70-106 mg/dl Prothrombin Time 11.0 9.3-11.8 sec Prothrombin Time INR 1.04 0.9-1.15 Activated Partial Thromboplast Time 50.7 H 24.5-34.5 SEC White Blood Count 10.4 # 4.4-10.8 10^3/uL Red Blood Count 4.90 4.5-5.90 10^6/uL Hemoglobin 14.5 13.5-17.5 g/dL Hematocrit 43.0 41.0-53.0 % Mean Corpuscular Volume 87.7 80.0-100.0 fL Mean Corpuscular Hemoglobin 29.5 28.0-32.0 pg Mean Corpuscular Hemoglobin Concent 33.7 32.0-36.0 g/dL Red Cell Distribution Width 13.8 11.8-14.3 % Platelet Count 273 140-450 10^3/uL Mean Platelet Volume 8.9 6.9-10.8 fL Neutrophils (%) (Auto) 77.2 37.0-80.0 % Lymphocytes (%) (Auto) 13.8 10.0-50.0 % Monocytes (%) (Auto) 8.3 0.0-12.0 % Eosinophils (%) (Auto) 0.1 0.0-7.0 % Basophils (%) (Auto) 0.6 0.0-2.0 % Neutrophils # (Auto) 8.0 1.6-8.6 10 ^3/uL Lymphocytes # (Auto) 1.4 0.4-5.4 10 ^3/uL Monocytes # (Auto) 0.9 0-1.3 10 ^3/uL Eosinophils # (Auto) 0 0-0.8 10 ^3/uL Basophils # (Auto) 0.1 0-0.2 10 ^3/uL Nucleated Red Blood Cells 0.0 % Sodium Level 140 136-145 mmol/L Potassium Level 3.9 3.5-5.1 mmol/L Chloride Level 107 98-107 mmol/L Carbon Dioxide Level 26 20-31 mmol/L Anion Gap 7 5-15 Blood Urea Nitrogen 9 9-23 mg/dL Creatinine 1.09 0.700-1.30 mg/dL Glomerular Filtration Rate Calc 76 >90 mL/min BUN/Creatinine Ratio 8.3 L 10.0-20.0 Serum Glucose 192 H 74-106 mg/dL Hemoglobin A1c 9.0 H <5.7 % A1C Calcium Level 9.4 8.7-10.4 mg/dL Total Bilirubin 0.6 0.2-1.0 mg/dL Aspartate Amino Transferase (AST) 116 H 13-40 U/L Alanine Aminotransferase (ALT) 39 7-40 U/L Alkaline Phosphatase 123 H 46-116 U/L Total Protein 6.5 5.7-8.2 g/dL Albumin 4.0 3.2-4.8 g/dL Triglycerides Level 91 < 150 mg/dL Cholesterol Level 149 < 200 mg/dL LDL Cholesterol 96 < 100 mg/dL HDL Cholesterol 43 40-59 mg/dL SARS-CoV-2 Antigen (Rapid) Negative NEGATIVE Test 02/29/24 21:56 02/29/24 17:49 Range/Units Troponin I High Sensitivity 84653 *H </=54 ng/L Urine Color Light-yellow Yellow Urine Clarity Clear Clear Urine pH 5.5 5.0-9.0 Urine Specific [place] 1.014 1.001-1.035 Urine Protein Negative Negative Urine Ketones Negative Negative Urine Blood Negative Negative /uL Urine Nitrite Negative Negative Urine Bilirubin Negative Negative Urine Urobilinogen Normal Negative mg/dL Urine Leukocyte Esterase Negative Negative /uL Urine RBC <1 0 - 3 /hpf Urine WBC None seen 0 - 3 /hpf Urine Squamous Epithelial Cells None seen <5 /hpf Urine Bacteria None seen None Seen /hpf Urine Glucose 2+ H Normal mg/dL Assessment NSTEMI rule out coronary artery disease --> left heart catheterization --> Heparin drip --> Chest pain protocol Chest pain likely previous myocardial infarction given inferior leads Q waves --> T wave inversion on inferior leads ---> [place] [address], [address], [address] --> Pertinent family history ( mother of heart attack at 80 years) --> for left heart catheterization this afternoon Rule out structure heart disease --> Echo: pending Type 2 diabetes, uncontrolled, Hb A1c 9 --> Noncompliant with his medication ( Metformin) --> - mild sliding scale insulin Hypertension --> blood pressure stable now --> Continue home medications ( Amlodipine and lisinopril) --> IV hydralazine 10 mg prn if SBP greater than 170 Dyslipidemia --> Atorvastatin Positive family history --> mother of heart attack Time of consult 0830 Critical time spent was more than 45 minutes Thank you for allowing us to participate in the care of this patient. Please call if you have any questions or concerns. Plan discussed with: Patient, Spouse Visit Coding Cardiology RES Date of Service: Mar 01, 2024 Billing Provider: JOSHUA STEWARD MD Cardiology Common Codes: 42867-IWDRWMT INP/OBS CARE (High) Cardiology Consultation Codes: 49831-[id number] CONSULT <60MIN ELIESER MORALES RESIDENT Mar 01, 2024 16:38
--- NOTE | 2024-03-01 18:55 | ECG ---
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
--- NOTE | 2024-03-01 21:04 | PRN ---
Misceleneous Note Note Note Received call from [facility], accepted by dr Young CT surgery. Pending bed. MARLO AVILA MD Mar 01, 2024 21:04
[2024-03-01] MEDS ORDERED: ATORVASTATIN 20 MG TAB PO SCH (22:00)
[2024-03-02] VITALS (7 sets, daily range): BP systolic 106–131; BP diastolic 63–90; PULSE 66–78; RESP 16–20; TEMP 97.5–99.1; O2SAT 93–96
[2024-03-02 01:18] LABS: INR 1.02 (0.9-1.15); Partial Thromboplastin Time 42.9 SEC (24.5-34.5); Prothrombin Time 10.8 sec (9.3-11.8)
[2024-03-02] MEDS: HEPARIN DRIP/D5W 100UNITS/ML 250 ML IV SCH (01:58)
[2024-03-02 07:27] LABS: Basophils # (auto) 0 10 ^3/uL (0-0.2); Basophils % (auto) 0.4 % (0.0-2.0); Eosinophils # (auto) 0.1 10 ^3/uL (0-0.8); Eosinophils % (auto) 0.9 % (0.0-7.0); Hematocrit 43.9 % (41.0-53.0); Hemoglobin 14.9 g/dL (13.5-17.5); Lymphocytes # (auto) 2.1 10 ^3/uL (0.4-5.4); Lymphocytes % (auto) 28.1 % (10.0-50.0); Mean Corpuscular Hemoglobin 30.1 pg (28.0-32.0); Mean Corpuscular Hgb Conc. 33.9 g/dL (32.0-36.0); Mean Corpuscular Volume 88.8 fL (80.0-100.0); Monocytes # (auto) 0.8 10 ^3/uL (0-1.3); Monocytes % (auto) 10.8 % (0.0-12.0); Neutrophils # (auto) 4.4 10 ^3/uL (1.6-8.6); Neutrophils % (auto) 59.8 % (37.0-80.0); Nucleated Red Blood Cells % 0.1 %; Platelet Count (auto) 261 10^3/uL (140-450); Red Blood Cells 4.94 10^6/uL (4.5-5.90); Red Cell Distribution Width 14.2 % (11.8-14.3); White Blood Cell 7.4 10^3/uL (4.4-10.8)
[2024-03-02 09:00] LABS: INR 1.06 (0.9-1.15); Prothrombin Time 11.2 sec (9.3-11.8)
[2024-03-02 09:06] LABS: Partial Thromboplastin Time 75.4 SEC (24.5-34.5)
[2024-03-02] MEDS ORDERED: METF-370 PO (12:01)
[2024-03-02] MEDS ORDERED: AMLO1TAB22 PO (12:01)
[2024-03-02] MEDS ORDERED: ATOR20TA50 PO (12:13)
[2024-03-02] MEDS ORDERED: ASPI-498 OR (12:14)
--- NOTE | 2024-03-02 14:28 | ECG ---
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
[2024-03-02 15:07] LABS: INR 1.07 (0.9-1.15); Prothrombin Time 11.3 sec (9.3-11.8)
[2024-03-02 15:12] LABS: Partial Thromboplastin Time 73.7 SEC (24.5-34.5)
--- NOTE | 2024-03-02 16:12 | DVHPN2 ---
Consult Progress Note Date Seen: Mar 02, 2024 Subjective Other Systems: Patient seen and examine today. He has no new complaints. He is s/p [facility] which revealed evealingdiffuse three-vessel disease involving left main, prox LAD, mid LAD, subtotal left circumflex system, subtotal right coronary system withcollateral from the left system. Objective vital signs Vital Sign Date Time Temp Pulse Resp B/P (MAP) Pulse Ox O2 Delivery O2 Flow Rate FiO2 03/02/24 13:00 97.9 78 16 131/81 (98) 93 97.9 03/02/24 08:00 Room Air* 0 21 Total Intake and Output 03/01/24 03/01/24 03/02/24 15:00 23:00 07:00 Intake Total 0 ml Balance 0 ml medications Current Medications Medications Dose Ordered Sig/Devan Route Start Time Stop Time Status Last Admin Dose Admin Diagnostic Test (Pha) 1 strip Q6HR 03/01/24 00:00 03/02/24 12:50 1 STRIP Insulin Human Regular Q6HR SC 03/01/24 00:00 03/02/24 06:23 2 UNITS Dextrose 50 ml UD PRN IV 02/29/24 20:30 Ondansetron HCl 4 mg Q4HP PRN IV 02/29/24 20:30 Morphine Sulfate 2 mg Q30M PRN IV 02/29/24 20:30 Atorvastatin Calcium 80 mg HS PO 03/02/24 22:00 Aspirin 81 mg DAILY PO 03/01/24 16:15 03/02/24 10:05 81 MG Heparin Sodium/ Dextrose 250 ml @ 14 mls/hr [id number] IV 03/02/24 02:00 03/02/24 01:58 14 MLS/HR laboratory and microbiology Laboratory Tests 03/02/24 06:20 03/01/24 04:03 Test 03/01/24 04:03 Range/Units Serum Glucose 192 H 74-106 mg/dL Problem List/Assessment/Plan Problem List/Assessment/Plan Diffused Coronary artery disease --> S/P left heart catheterization: revealed diffuse three-vessel disease involving left main, prox LAD, mid LAD,subtotal left circumflex system, subtotal right coronary system with collateral from the left system --> Continue Heparin drip --> Aspirin 81 mg daily --> Aggressive statin therapy -->Plan: transfer to [facility] for open heart surgery as an option for revascularization. Chest pain likely previous myocardial infarction given inferior leads Q waves --> T wave inversion on inferior leads ---> [place] [address], [address], [id number] --> Pertinent family history ( mother of heart attack at 80 years) Ruled out structure heart disease --> Echo: Normal left ventricular systolic function estimated ejection fraction 55%. Type 2 diabetes, uncontrolled, Hb A1c 9 --> Noncompliant with his medication ( Metformin) --> - mild sliding scale insulin Hypertension --> blood pressure stable now --> Continue home medications ( Amlodipine and lisinopril) --> IV hydralazine 10 mg prn if SBP greater than 170 Dyslipidemia --> Aggressive statin therapy Positive family history --> mother of heart attack Thank you for allowing us to participate in the care of this patient. Please call if you have any questions or concerns. Plan discussed with: Patient Date of Service: Mar 02, 2024 Billing Provider: ELIESER MORALES Cardiology Common Codes: 75599-IFETENUS CARE-EACH +30MIN ELIESER MORALES Mar 02, 2024 16:12
--- NOTE | 2024-03-02 16:29 | DVHPNRES ---
Progress Note Date Seen: Mar 02, 2024 Resident Creating Document: JOYCELYN OCASIO RESIDENT Medical Necessity Reason Pt with a Central, PICC or Fol: No Subjective Review of Systems Patient is a 63-year-old male with past medical history of hypertension, dyslipidemia, type 2 diabetes of, who came in due to chest pain. Patient notes for the last 1.5 weeks he has been having chest pain along with bilateral arm pain which is more pronounced in the left upper extremity than the right. Patient notes that previously he has experienced chest pain more so on exertion, however, that was intermittent in nature where as this current episode of chest pain is more persistent and had been ongoing for 4-5 hours on 02/29/24 which prompted this visit to the hospital. Patient describes the pain as heaviness in his chest along with difficulty breathing. Patient notes that he is able to engage in physical activity for 20 minutes before he starts experiencing chest pain/tightness. Patient notes he also attended another clinic before coming to the [facility] where he was told he needs to visit the hospital. [place] [address] [id number] [place] [id number]. Patient completed left heart catheterization which showed diffuse three-vessel disease including subtotal right and subtotal left circumflex artery with a moderately severe disease involving the proximal mid left anterior descending artery in the distal left main, given the diffuse nature of the disease patient is recommended to get a coronary artery bypass graft surgery as the best option for revascularization. Request to transfer to higher level of care initiated Past surgical history: Appendectomy Home medications: Atorvastatin, lisinopril, amlodipine, aspirin, oral antidiabetic medication patient unsure of name. Social & Personal history: Patient lives with family in [place]. Quit smoking cigarettes 30 years ago. Sometimes uses alcohol. Denies using drugs. Allergies: Denies Patient seen and examined at bedside. Patient is alert and oriented to time, place person and responding to all questions. Patient denies any chest pain, notes last chest pain episode was on Tuesday02/27/24. Denies any dyspnea, nausea or shortness of breath. All questions were answered and concerns were addressed with grandson and brother at bedside. Objective vital signs Vital Sign Date Time Temp Pulse Resp B/P (MAP) Pulse Ox O2 Delivery O2 Flow Rate FiO2 03/02/24 13:00 97.9 78 16 131/81 (98) 93 97.9 03/02/24 08:00 Room Air* 0 21 Total Intake and Output 03/01/24 03/01/24 03/02/24 15:00 23:00 07:00 Intake Total 0 ml Balance 0 ml medications Current Medications Medications Dose Ordered Sig/Devan Route Start Time Stop Time Status Last Admin Dose Admin Diagnostic Test (Pha) 1 strip Q6HR 03/01/24 00:00 03/02/24 12:50 1 STRIP Insulin Human Regular Q6HR SC 03/01/24 00:00 03/02/24 06:23 2 UNITS Dextrose 50 ml UD PRN IV 02/29/24 20:30 Ondansetron HCl 4 mg Q4HP PRN IV 02/29/24 20:30 Morphine Sulfate 2 mg Q30M PRN IV 02/29/24 20:30 Atorvastatin Calcium 80 mg HS PO 03/02/24 22:00 Aspirin 81 mg DAILY PO 03/01/24 16:15 03/02/24 10:05 81 MG Heparin Sodium/ Dextrose 250 ml @ 14 mls/hr [id number] IV 03/02/24 02:00 03/02/24 01:58 14 MLS/HR Examination General Appearance: Cooperative. Well developed. Well nourished. NAD Head Exam: Normal inspection Neck Exam: Normal inspection. Non-tender. Normal alignment Pulmonary/Respiratory: Chest non-tender. Clear bilateral breath sounds, no crackles, wheezing. Cardiovascular/Chest: Regular rate and rhythm. No murmurs. No JVD. Peripheral Pulses: 2+ Radial (R). 2+ Radial (L). 2+ Pedal (R). 2+ Pedal (L) Abdominal Exam: Normal bowel sounds. Soft. normal abdomen, no visible veins, Nontender. No hepatospenomegaly. No masses Ankle Exam: Negative ankle edema Lower extremities: Negative lower extremity edema Neuro/Mental Status: A&O x4. Coherent. Thoughts/Psych: Normal thought pattern. Appropriate mood and affect. Good judgement and insight Skin Exam: Normal inspection. Normal color. Warm. Dry laboratory and microbiology Laboratory Tests 03/02/24 06:20 03/01/24 04:03 Test 03/01/24 04:03 Range/Units Serum Glucose 192 H 74-106 mg/dL Labs and/or images reviewed: Labs reviewed by me, Image(s) reviewed by me Problem List/Assessment/Plan Problem List/Assessment/Plan Chest pain due to NSTEMI - CXR: No acute osseous or superficial soft tissue abnormalities - serial troponins 39482, 26760, 57712 - started on heparin drip 14 mL/hour, aspirin 81 mg, atorvastatin 80 mg - Patient completed left heart catheterization which showed diffuse three-vessel disease including subtotal right and subtotal left circumflex artery with a moderately severe disease involving the proximal mid left anterior descending artery in the distal left main, given the diffuse nature of the disease patient is recommended to get a coronary artery bypass graft surgery as the best option for revascularization. Request to transfer to higher level of care initiated Type 2 diabetes, uncontrolled, Hb A1c 9 - mild sliding scale insulin Hypertension Dyslipidemia - IV hydralazine 10 mg as needed for SBP greater than 150 DVT prophylaxis: On heparin drip Goals of care: Full code, discussed for >16 minutes on 03/01/24 Plan discussed with patient Plan discussed with Dr. Avila Plan discussed with: Patient, Son, Other (RN) My Orders My Orders Orders - JOYCELYN OCASIO Procedure Category Date Status Time Cardiac DIET 03/02/24 Transmitted Diet-2gna,Lofat,Lochol Breakfast Date of Service: Mar 02, 2024 Billing Provider: MARLO AVILA MD Common Visit Codes: [id number] INP/OBS CARE(HIGH) JOYCELYN OCASIO Mar 02, 2024 16:29 MARLO AVILA MD Mar 03, 2024 17:33
[2024-03-02 21:02] LABS: INR 1.06 (0.9-1.15); Prothrombin Time 11.2 sec (9.3-11.8)
[2024-03-02 21:38] LABS: Partial Thromboplastin Time 74.5 SEC (24.5-34.5)
[2024-03-02] MEDS: ATORVASTATIN 20 MG TAB PO SCH (21:46)
--- NOTE | 2024-03-13 06:19 | DVHDSRES ---
Discharge Summary Date of Admission Resident Creating Document: JOYCELYN OCASIO RESIDENT Feb 29, 2024 at 20:20 Date of Discharge: Mar 03, 2024 Admitting Diagnosis Chest pain Labs/Diagnostic Data: Laboratory Results Test 03/03/24 00:10 03/02/24 20:06 03/02/24 06:20 03/01/24 04:03 POC Glucose 159 mg/dl (70-106) Prothrombin Time 11.2 sec (9.3-11.8) Prothrombin Time INR 1.06 (0.9-1.15) Activated Partial Thromboplast Time 74.5 SEC (24.5-34.5) White Blood Count 7.4 10^3/uL (4.4-10.8) Red Blood Count 4.94 10^6/uL (4.5-5.90) Hemoglobin 14.9 g/dL (13.5-17.5) Hematocrit 43.9 % (41.0-53.0) Mean Corpuscular Volume 88.8 fL (80.0-100.0) Mean Corpuscular Hemoglobin 30.1 pg (28.0-32.0) Mean Corpuscular Hemoglobin Concent 33.9 g/dL (32.0-36.0) Red Cell Distribution Width 14.2 % (11.8-14.3) Platelet Count 261 10^3/uL (140-450) Mean Platelet Volume 9.0 fL (6.9-10.8) Neutrophils (%) (Auto) 59.8 % (37.0-80.0) Lymphocytes (%) (Auto) 28.1 % (10.0-50.0) Monocytes (%) (Auto) 10.8 % (0.0-12.0) Eosinophils (%) (Auto) 0.9 % (0.0-7.0) Basophils (%) (Auto) 0.4 % (0.0-2.0) Neutrophils # (Auto) 4.4 10 ^3/uL (1.6-8.6) Lymphocytes # (Auto) 2.1 10 ^3/uL (0.4-5.4) Monocytes # (Auto) 0.8 10 ^3/uL (0-1.3) Eosinophils # (Auto) 0.1 10 ^3/uL (0-0.8) Basophils # (Auto) 0 10 ^3/uL (0-0.2) Nucleated Red Blood Cells 0.1 % Sodium Level 140 mmol/L (136-145) Potassium Level 3.9 mmol/L (3.5-5.1) Chloride Level 107 mmol/L (98-107) Carbon Dioxide Level 26 mmol/L (20-31) Anion Gap 7 (5-15) Blood Urea Nitrogen 9 mg/dL (9-23) Creatinine 1.09 mg/dL (0.700-1.30) Glomerular Filtration Rate Calc 76 mL/min (>90) BUN/Creatinine Ratio 8.3 (10.0-20.0) Serum Glucose 192 mg/dL (74-106) Hemoglobin A1c 9.0 % A1C (<5.7) Calcium Level 9.4 mg/dL (8.7-10.4) Total Bilirubin 0.6 mg/dL (0.2-1.0) Aspartate Amino Transferase (AST) 116 U/L (13-40) Alanine Aminotransferase (ALT) 39 U/L (7-40) Alkaline Phosphatase 123 U/L (46-116) Total Protein 6.5 g/dL (5.7-8.2) Albumin 4.0 g/dL (3.2-4.8) Triglycerides Level 91 mg/dL (< 150) Cholesterol Level 149 mg/dL (< 200) LDL Cholesterol 96 mg/dL (< 100) HDL Cholesterol 43 mg/dL (40-59) Test 03/01/24 03:17 02/29/24 21:56 02/29/24 17:49 SARS-CoV-2 Antigen (Rapid) Negative (NEGATIVE) Troponin I High Sensitivity 55140 ng/L (</=54) Urine Color Light-yellow (Yellow) Urine Clarity Clear (Clear) Urine pH 5.5 (5.0-9.0) Urine Specific Morton 1.014 (1.001-1.035) Urine Protein Negative (Negative) Urine Ketones Negative (Negative) Urine Blood Negative /uL (Negative) Urine Nitrite Negative (Negative) Urine Bilirubin Negative (Negative) Urine Urobilinogen Normal mg/dL (Negative) Urine Leukocyte Esterase Negative /uL (Negative) Urine RBC <1 /hpf (0 - 3) Urine WBC None seen /hpf (0 - 3) Urine Squamous Epithelial Cells None seen /hpf (<5) Urine Bacteria None seen /hpf (None Seen) Urine Glucose 2+ mg/dL (Normal) Other Laboratory Tests 03/02/24 06:20 03/01/24 04:03 Brief Hx & Hospital Course: Patient is a 63-year-old male with past medical history of hypertension, dyslipidemia, type 2 diabetes of, who came in due to chest pain. Patient notes for the last 1.5 weeks he has been having chest pain along with bilateral arm pain which is more pronounced in the left upper extremity than the right. Patient notes that previously he has experienced chest pain more so on exertion, however, that was intermittent in nature where as this current episode of chest pain is more persistent and had been ongoing for 4-5 hours on 02/29/24 which prompted this visit to the hospital. Patient describes the pain as heaviness in his chest along with difficulty breathing. Patient notes that he is able to engage in physical activity for 20 minutes before he starts experiencing chest pain/tightness. Patient notes he also attended another clinic before coming to the [facility] where he was told he needs to visit the hospital. [place] [address], [address] [place] 58798. Patient completed left heart catheterization which showed diffuse three-vessel disease including subtotal right and subtotal left circumflex artery with a moderately severe disease involving the proximal mid left anterior descending artery in the distal left main, given the diffuse nature of the disease patient is recommended to get a coronary artery bypass graft surgery as the best option for revascularization. Request to transfer to higher level of care initiated. Condition at Discharge: Good Final Diagnosis/Problems List Chest pain due to NSTEMI Coronary artery disease, diffuse Type 2 diabetes, uncontrolled, Hb A1c 9 Hypertension Chronic diastolic heart failure likely due to above Dyslipidemia Discharge Disposition: Acute Care Facility Discharge Instruct/Medications Diet: Consistent carbohydrate, Cardiac 2g Na,low cholest Activity: No Restrictions, As Tolerated Discharge Statement: "Patient was advised to return to the ER or call 911 if any headaches, dizziness, shortness of breath, chest pain, abdominal pain, bleeding, fevers, or worsening of medical condition. Patient was counseled about treatment plan, medications, possible side effects, patientverbalized understanding. All questions were answered to the best of my ability. This discharge took greater then 30 minutes in planning, reviewing documentation, counseling the patient, and discussing with other team members." ASSESSMENT ASSESSMENT Assessment Coronary angiography performed via right transradial approach revealingdiffuse three-vessel disease involving left main, prox LAD, mid LAD,subtotal left circumflex system, subtotal right coronary system withcollateral from the left system. Given the diffuse nature of the diseasepatient will be better served with open heart surgery as an option forrevascularization. Date of Service: Mar 03, 2024 Billing Provider: MARLO AVILA MD Common Visit Codes: 13053-IOC/OBS DISCH DAY >30min JOYCELYN OCASIO Mar 13, 2024 06:19 MARLO AVILA MD Mar 13, 2024 14:06
== END 2024-03-03 00:45 | disposition short-term general hospital (02) | DRG 190 ==
LOC: ER 17:40 → OVERFLOW 20:20 → TELE-CENTR 03-01 17:12
PROVIDERS: ADMIT Student in an Organized Health Care Education/Training Program; ATTEND Student in an Organized Health Care Education/Training Program
PROC: 4A023N7 Measurement of Cardiac Sampling and Pressure, Left Heart, Percutaneous Approach (ICD-10-PCS; principal; 2024-03-01)
PROC: B211YZZ Fluoroscopy of Multiple Coronary Arteries using Other Contrast (ICD-10-PCS; 2024-03-01)
DX: I21.4 Non-ST elevation (NSTEMI) myocardial infarction (principal); E11.9 Type 2 diabetes mellitus without complications; I50.32 Chronic diastolic (congestive) heart failure; I11.0 Hypertensive heart disease with heart failure; I25.10 Atherosclerotic heart disease of native coronary artery without angina pectoris; E78.5 Hyperlipidemia, unspecified; Z20.822 Contact with and (suspected) exposure to COVID-19; Z90.49 Acquired absence of other specified parts of digestive tract; Z63.4 Disappearance and death of family member; Z82.3 Family history of stroke
CPT/HCPCS: 36415; 71045; 80053; 80061; 81001; 82962; 83036; 84484; 85025; 85610; 85730; 86850; 86900; 86901; 87426; 93005; 93306; 93458; 99152; 99291; G0378; J1815; J2250; Q9967

== ENCOUNTER → 2024-07-12 | Outpatient (CLI) | payer MEDICAID ==
[~2024-07-12] MED LIST: AMLO1TAB22 PO; ASPI-498 OR; ATOR20TA50 PO; METF-370 PO
[2024-07-12 09:22] LABS: Basophils # (auto) 0 10 ^3/uL (0-0.2); Basophils % (auto) 0.9 % (0.0-2.0); Eosinophils # (auto) 0.1 10 ^3/uL (0-0.8); Eosinophils % (auto) 1.3 % (0.0-7.0); Hematocrit 46.2 % (41.0-53.0); Hemoglobin 15.4 g/dL (13.5-17.5); Lymphocytes # (auto) 1.3 10 ^3/uL (0.4-5.4); Lymphocytes % (auto) 27.6 % (10.0-50.0); Mean Corpuscular Hemoglobin 27.1 pg (28.0-32.0); Mean Corpuscular Hgb Conc. 33.2 g/dL (32.0-36.0); Mean Corpuscular Volume 81.5 fL (80.0-100.0); Monocytes # (auto) 0.4 10 ^3/uL (0-1.3); Monocytes % (auto) 7.9 % (0.0-12.0); Neutrophils % (auto) 62.3 % (37.0-80.0); Nucleated Red Blood Cells % 0.1 %; Platelet Count (auto) 285 10^3/uL (140-450); Red Blood Cells 5.67 10^6/uL (4.5-5.90); Red Cell Distribution Width 16.1 % (11.8-14.3); White Blood Cell 4.9 10^3/uL (4.4-10.8)
[2024-07-12 09:38] LABS: Alanine Aminotransferase 30 U/L (7-40); Albumin 4.3 g/dL (3.2-4.8); Anion Gap 6 (5-15); Aspartate Aminotransferase 21 U/L (13-40); BUN/Creatinine Ratio 12.2 (10.0-20.0); Blood Urea Nitrogen 15 mg/dL (9-23); Calcium 9.6 mg/dL (8.7-10.4); Carbon Dioxide 29 mmol/L (20-31); Glucose 100 mg/dL (74-106); LDL Cholesterol 71 mg/dL (< 100); Potassium 4.6 mmol/L (3.5-5.1); Sodium 144 mmol/L (136-145); Total Protein 7.1 g/dL (5.7-8.2); Triglycerides 67 mg/dL (< 150)
[2024-07-12 09:39] LABS: Alkaline Phosphatase 130 U/L (46-116); Bilirubin, Total 0.6 mg/dL (0.2-1.0); Chloride 109 mmol/L (98-107); Cholesterol 130 mg/dL (< 200); HDL Cholesterol 44 mg/dL (40-59)
[2024-07-12 11:32] LABS: Free T3 2.76 pg/mL (2.3-4.2); Free T4 (Free Thyroxine) 1.23 ng/dL (0.89-1.76)
== END | disposition home or self-care (01) ==
LOC: LAB 09:07
PROVIDERS: ATTEND Internal Medicine
DX: I11.0 Hypertensive heart disease with heart failure (principal); I50.32 Chronic diastolic (congestive) heart failure; R07.9 Chest pain, unspecified
CPT/HCPCS: 36415; 80053; 80061; 84439; 84481; 85025

== ENCOUNTER 2024-11-23 08:32 | Outpatient (CLI) | payer MEDICAID ==
[2024-11-23 10:05] LABS: Alanine Aminotransferase 21 U/L (7-40); Anion Gap 9 (5-15); BUN/Creatinine Ratio 11.0 (10.0-20.0); Blood Urea Nitrogen 13 mg/dL (9-23); Calcium 9.0 mg/dL (8.7-10.4); Carbon Dioxide 28 mmol/L (20-31); Chloride 104 mmol/L (98-107); Glucose 95 mg/dL (74-106); Potassium 4.4 mmol/L (3.5-5.1); Sodium 141 mmol/L (136-145)
[2024-11-23 10:06] LABS: Total Protein 7.0 g/dL (5.7-8.2)
[2024-11-23 10:07] LABS: Albumin 4.2 g/dL (3.2-4.8); Bilirubin, Total 0.9 mg/dL (0.2-1.0)
[2024-11-23 10:09] LABS: Alkaline Phosphatase 118 U/L (46-116)
== END 2024-11-23 17:00 | disposition home or self-care (01) ==
LOC: LAB 08:32
PROVIDERS: ATTEND Internal Medicine
DX: I10 Essential (primary) hypertension (principal); R73.03 Prediabetes
CPT/HCPCS: 36415; 80053; 83036